=== PATIENT | male | born 1960 | race Caucasian/White ===

== ENCOUNTER 2016-06-03 14:22 | Emergency (ER) | payer OTHER ==
[~2016-06-03] VITALS: Ht 182.9 cm; Wt 114.2 kg
[~2016-06-03 14:22] MED LIST: AMBIEN10 MG PO; ASPIR 8181 M1 PO; ASPIR-LOW81 MG PO; ASPIRIN EC325 MG PO; AUGMENTIN875 MG PO; BACTRIM,SEPT1 TABLET PO; CLOPIDOGREL75 MG PO; CYCLOBENZAPRINE10 MG PO; DESYREL100 MG PO; DIAZEPAM; DIAZEPAM10 MG PO; DICYCLOMINE HCL20 MG PO; ESKALITH300 MG PO; FENTANYL1 EAC5 TD; FLEXERIL10 MG PO; FOLIC ACID1 MG PO; GLUCOPHAGE1000 MG PO; HUMALOG100 UNIT/1 SC; HUMALOG100 UNITS/ PO; HYDROCODON-ACE1 EAC5 PO; LANTUS 10100 UNITS/ SC; LANTUS100 UNIT/2 SQ; LIPITOR40 MG PO; LITHIUM CARBON150 MG PO; LITHIUM CARBON300 MG PO; LOTRIMIN AF90 GM TP; LYRICA100 MG PO; METFORMIN HCL1000 MG PO; MOTRIN600 MG PO; NITROSTAT0.4 MG SL; NORCO 5/3251 TABLET PO; OXCARBAZEPINE600 MG PO; OXYCODONE HCL10 MG PO; OXYCODONE HCL5 M1; PERCOCET 5/31 TABLET PO; PLAVIX75 MG PO; ROXICODONE5 MG PO; SEROQUEL400 MG PO; SKELAXIN800 MG PO; TEMAZEPAM30 MG PO; TORADOL10 MG PO; TRAMADOL HCL50 MG PO; TRILEPTAL300 MG PO; VALIUM5 MG PO; ZOFRAN4 MG PO; ZOLPIDEM TARTRA10 MG PO
[2016-06-03 15:17] LABS: HEMATOCRIT 44.9 % (38.0-50.0); MCH 30.5 PG (29.0-34.0); MCV 87.2 FL (86-99); RBC DIS.WIDTH-CV 14.1 % (11.8-14.6); RBC DIS.WIDTH-SD 44.3 % (39-53); RED BLOOD COUNT 5.15 M/uL (4.00-5.50); WHITE BLOOD COUNT 5.1 K/uL (4.1-10.2)
[2016-06-03 15:27] LABS: CHLORIDE 105 mEq/L (99-109); POTASSIUM 4.2 mEq/L (3.7-5.4); SODIUM 137 mEq/L (136-147)
[2016-06-03 15:29] LABS: GLUCOSE 175 mg/dL (70-99)
[2016-06-03 15:30] LABS: ANION GAP 7 MEQ/L (2-14)
[2016-06-03 15:33] LABS: GFR ESTIMATE (CALCULATED) > 59 mL/min/; UREA NITROGEN (BUN) 11 mg/dL (9-23)
[2016-06-03 15:37] LABS: TROP-I INTERPRETATION NEGATIVE; TROPONIN-I < 0.01 ng/mL (0.0-0.30)
[2016-06-03 16:00] LABS: HEMATOLOGY COMMENT 1 SMEAR COMPATIBLE; MEAN PLAT.VOLUME 10.2 uM^3 (9.0-12.4); PLATELET COUNT 37 K/uL (156-360)
[2016-06-03 16:28] LABS: AMYLASE 44 IU/L (1-118)
[2016-06-03 16:32] LABS: TOTAL BILIRUBIN 1.7 mg/dL (0.0-1.0)
[2016-06-03 16:33] LABS: ALKALINE PHOSPHATASE 90 IU/L (3-129)
[2016-06-03 16:36] LABS: DIRECT BILIRUBIN 0.6 mg/dL (0.0-0.3)
[2016-06-03 16:37] LABS: LIPASE 9 U/L (1.0-51.0)
[2016-06-03 17:38] VITALS: BP 137/81
== END 2016-06-03 17:42 | disposition left against medical advice (07) ==
LOC: EME 14:22
DX: R07.9 Chest pain, unspecified (principal); R10.9 Unspecified abdominal pain; E11.9 Type 2 diabetes mellitus without complications; I10 Essential (primary) hypertension; K72.90 Hepatic failure, unspecified without coma; I25.2 Old myocardial infarction; F17.200 Nicotine dependence, unspecified, uncomplicated; Z95.5 Presence of coronary angioplasty implant and graft
CPT/HCPCS: 71020; 74176; 80048; 80076; 82150; 83690; 84484; 85027; 93005; 99281; 99284

== ENCOUNTER 2016-10-03 21:20 | Emergency (ER) | payer OTHER ==
[~2016-10-03] VITALS: Ht 182.9 cm; Wt 111.6 kg
[~2016-10-03 21:20] MED LIST changes: +OXYCODONE HCL15 MG PO
[2016-10-03 23:35] LABS: ADD MIUA? YES; BILIRUBIN SMALL; BLOOD NEGATIVE; COLOR AMBER ((YELLOW)); GLUCOSE (STRIP) >=500; KETONES 5; LEUKOCYTES NEGATIVE; NITRITE NEGATIVE; PROTEIN (STRIP) 30; SPECIFIC GRAVITY 1.029 (1.000-1.030)
[2016-10-03 23:36] LABS: BACTERIA RARE /HPF; EPITHELIAL CELLS RARE /HPF; MUCUS TRACE /LPF; RED BLOOD CELLS 0-5 /HPF (0-5); UCUL ADDED? NO; WHITE BLOOD CELLS 0-5 /HPF (0-5)
[2016-10-04] MEDS ORDERED: SKELAXIN800 MG PO (02:02)
[2016-10-04 02:27] VITALS: BP 126/90
[2016-10-05] MEDS ORDERED: LANTUS 3 M100 UNITS1 SC (22:21)
== END 2016-10-04 02:30 | disposition home or self-care (01) ==
LOC: EME 21:20
PROVIDERS: Physician Assistant
DX: M48.06 Spinal stenosis, lumbar region (principal); G89.29 Other chronic pain; M54.5 Low back pain; R32 Unspecified urinary incontinence; Z86.73 Personal history of transient ischemic attack (TIA), and cerebral infarction without residual deficits; I25.2 Old myocardial infarction; K74.60 Unspecified cirrhosis of liver; E11.9 Type 2 diabetes mellitus without complications; Z95.5 Presence of coronary angioplasty implant and graft; Z79.84 Long term (current) use of oral hypoglycemic drugs; Z79.82 Long term (current) use of aspirin; Z79.891 Long term (current) use of opiate analgesic; Z79.4 Long term (current) use of insulin; F17.200 Nicotine dependence, unspecified, uncomplicated
CPT/HCPCS: 72148; 81003; 99281; 99284; J1885; J2060; J3010

== ENCOUNTER 2016-10-04 15:57 | Emergency (ER) | payer OTHER ==
[2016-10-05] MEDS ORDERED: LANTUS 3 M100 UNITS1 SC (22:21)
== END 2016-10-04 16:28 | disposition left against medical advice (07) ==
LOC: EME 15:57
DX: M54.5 Low back pain (principal); Z53.21 Procedure and treatment not carried out due to patient leaving prior to being seen by health care provider

== ENCOUNTER 2016-10-05 20:31 | Inpatient (IN) | payer OTHER ==
[~2016-10-05] VITALS: Ht 182.9 cm; Wt 112.2 kg
[2016-10-05] MEDS ORDERED: LANTUS 3 M100 UNITS1 SC (22:21)
[2016-10-05 22:24] LABS: HEMATOCRIT 39.4 % (38.0-50.0); MCHC 33.5 G/DL (30.0-36.0); MCV 89.5 FL (86-99); RBC DIS.WIDTH-CV 13.4 % (11.8-14.6); RBC DIS.WIDTH-SD 44.5 % (39-53); WHITE BLOOD COUNT 3.8 K/uL (4.1-10.2)
[2016-10-05 22:35] LABS: CHLORIDE 104 mEq/L (99-109); POTASSIUM 4.3 mEq/L (3.7-5.4); SODIUM 136 mEq/L (136-147)
[2016-10-05 22:37] LABS: GLUCOSE 275 mg/dL (70-99)
[2016-10-05 22:38] LABS: ANION GAP 4 MEQ/L (2-14); INTER. NORMALIZED RATIO 1.2; PTT 29.2 (25-32)
[2016-10-05 22:41] LABS: GFR ESTIMATE (CALCULATED) > 59 mL/min/
[2016-10-05 22:42] LABS: UREA NITROGEN (BUN) 9 mg/dL (9-23)
[2016-10-05 23:36] LABS: HEMATOLOGY COMMENT 1 SMEAR COMPATIBLE; IMM.PLATELET FRACTION 4.5 (1-7); MEAN PLAT.VOLUME 10.2 uM^3 (9.0-12.4); PLAT.SUFFICIENCY DECREASED; PLATELET COUNT 35 K/uL (156-360)
[2016-10-06] VITALS (7 sets, daily range): BP systolic 91–156; BP diastolic 54–78
[2016-10-06 06:31] LABS: MCH 31.3 PG (29.0-34.0); MCHC 34.4 G/DL (30.0-36.0); MCV 90.9 FL (86-99); RBC DIS.WIDTH-CV 13.5 % (11.8-14.6); RED BLOOD COUNT 3.96 M/uL (4.00-5.50); WHITE BLOOD COUNT 2.8 K/uL (4.1-10.2)
[2016-10-06 06:52] LABS: INTER. NORMALIZED RATIO 1.2; PROTHROMBIN TIME 12.5 (9.2-11.2)
[2016-10-06 06:55] LABS: ANION GAP 3 MEQ/L (2-14); CHLORIDE 105 MEQ/L (99-109); GFR ESTIMATE (CALCULATED) > 59 mL/min/; GLUCOSE 218 mg/dL (70-99); POTASSIUM 3.9 MEQ/L (3.7-5.4); SAMPLE HEMOLYSIS CHECK 0; SAMPLE ICTERIC CHECK 0; SAMPLE LIPEMIA CHECK 0; SODIUM 136 MEQ/L (136-147); UREA NITROGEN (BUN) 12 mg/dL (9-23)
[2016-10-06 07:23] LABS: METH RESISTANT S AUREUS PCR NEGATIVE (NEGATIVE); PROBE CHECK PASS; SPECIMEN PROCESSING CONTROL PASS
[2016-10-06 07:23] LABS: IMM.PLATELET FRACTION 4.2 (1-7); MEAN PLAT.VOLUME 11.6 uM^3 (9.0-12.4); PLAT.SUFFICIENCY DECREASED; PLATELET COUNT 34 K/uL (156-360)
[2016-10-06 22:07] LABS: POINT-OF-CARE METER ID UU14149397
[2016-10-07] VITALS (15 sets, daily range): BP systolic 111–138; BP diastolic 55–79
[2016-10-07 06:27] LABS: HEMATOCRIT 38.4 % (38.0-50.0); MCH 31.5 PG (29.0-34.0); MCHC 34.9 G/DL (30.0-36.0); MCV 90.1 FL (86-99); MEAN PLAT.VOLUME 10.9 uM^3 (9.0-12.4); PLATELET COUNT 42 K/uL (156-360); RBC DIS.WIDTH-CV 13.5 % (11.8-14.6); RBC DIS.WIDTH-SD 44.8 % (39-53); RED BLOOD COUNT 4.26 M/uL (4.00-5.50); WHITE BLOOD COUNT 4.6 K/uL (4.1-10.2)
[2016-10-07 06:32] LABS: POINT-OF-CARE METER ID UU14188577
[2016-10-07 07:07] LABS: PLAT.SUFFICIENCY DECREASED
[2016-10-07 11:58] LABS: POINT-OF-CARE METER ID UU14149397
[2016-10-07 15:22] LABS: POINT-OF-CARE METER ID UU13113675
[2016-10-08] VITALS (12 sets, daily range): BP systolic 95–155; BP diastolic 48–75
[2016-10-08 06:57] LABS: HEMATOCRIT 35.6 % (38.0-50.0); MCH 31.3 PG (29.0-34.0); MCV 92.2 FL (86-99); RBC DIS.WIDTH-CV 13.7 % (11.8-14.6); RBC DIS.WIDTH-SD 46.3 % (39-53); RED BLOOD COUNT 3.86 M/uL (4.00-5.50); WHITE BLOOD COUNT 4.1 K/uL (4.1-10.2)
[2016-10-08 07:48] LABS: IMM.PLATELET FRACTION 3.6 (1-7); MEAN PLAT.VOLUME 10.8 uM^3 (9.0-12.4); PLAT.SUFFICIENCY DECREASED; PLATELET COUNT 45 K/uL (156-360)
[2016-10-08 11:54] LABS: POINT-OF-CARE METER ID UU14188577
[2016-10-08 16:23] LABS: POINT-OF-CARE METER ID UU14188577
[2016-10-08 18:59] LABS: HEMATOCRIT 33.6 % (38.0-50.0); MCH 30.9 PG (29.0-34.0); MCHC 34.2 G/DL (30.0-36.0); MCV 90.3 FL (86-99); PLATELET COUNT 53 K/uL (156-360); RBC DIS.WIDTH-CV 13.6 % (11.8-14.6); RBC DIS.WIDTH-SD 45.4 % (39-53); RED BLOOD COUNT 3.72 M/uL (4.00-5.50); WHITE BLOOD COUNT 5.1 K/uL (4.1-10.2)
[2016-10-08 19:45] LABS: ANION GAP 4 MEQ/L (2-14); CHLORIDE 102 MEQ/L (99-109); GFR ESTIMATE (CALCULATED) > 59 mL/min/; GLUCOSE 134 mg/dL (70-99); POTASSIUM 4.3 MEQ/L (3.7-5.4); SAMPLE HEMOLYSIS CHECK 0; SAMPLE ICTERIC CHECK 0; SAMPLE LIPEMIA CHECK 0; SODIUM 133 MEQ/L (136-147); UREA NITROGEN (BUN) 13 mg/dL (9-23)
[2016-10-08 21:35] LABS: POINT-OF-CARE METER ID UU14149397
[2016-10-09 00:10] VITALS: BP 96/50
[2016-10-09 07:50] VITALS: BP 113/54
[2016-10-09 11:57] LABS: POINT-OF-CARE METER ID UU14149397
[2016-10-09 15:46] VITALS: BP 122/59
[2016-10-09 21:10] LABS: POINT-OF-CARE METER ID UU14149397
[2016-10-10] VITALS (12 sets, daily range): BP systolic 103–135; BP diastolic 51–75
[2016-10-10 06:48] LABS: HEMATOCRIT 30.8 % (38.0-50.0); MCH 30.6 PG (29.0-34.0); MCHC 33.8 G/DL (30.0-36.0); MCV 90.6 FL (86-99); RBC DIS.WIDTH-CV 13.6 % (11.8-14.6); RBC DIS.WIDTH-SD 45.1 % (39-53); WHITE BLOOD COUNT 4.4 K/uL (4.1-10.2)
[2016-10-10 07:33] LABS: IMM.PLATELET FRACTION 5.2 (1-7); MEAN PLAT.VOLUME 10.2 uM^3 (9.0-12.4); PLAT.SUFFICIENCY DECREASED; PLATELET COUNT 41 K/uL (156-360)
[2016-10-11 04:00] VITALS: BP 108/55
[2016-10-11 06:09] VITALS: BP 109/53
[2016-10-11 06:44] LABS: POINT-OF-CARE METER ID UU14188577
[2016-10-11 06:54] LABS: HEMATOCRIT 29.9 % (38.0-50.0); MCH 32.2 PG (29.0-34.0); MCHC 35.5 G/DL (30.0-36.0); MCV 90.9 FL (86-99); RBC DIS.WIDTH-CV 13.5 % (11.8-14.6); RED BLOOD COUNT 3.29 M/uL (4.00-5.50); WHITE BLOOD COUNT 4.2 K/uL (4.1-10.2)
[2016-10-11 07:24] LABS: IMM.PLATELET FRACTION 5.5 (1-7); MEAN PLAT.VOLUME 11.3 uM^3 (9.0-12.4); PLAT.SUFFICIENCY DECREASED; PLATELET COUNT 46 K/uL (156-360)
[2016-10-11 11:31] LABS: POINT-OF-CARE METER ID UU14188577
[2016-10-11 11:48] VITALS: BP 116/65
[2016-10-11] MEDS ORDERED: MORPHINE SULFAT15 M1 PO (11:54)
[2016-10-11] MEDS ORDERED: OXYCODONE HCL5 MG PO (11:54)
[2016-10-11] MEDS ORDERED: GABAPENTIN600 MG PO (11:54)
[2016-10-11 16:17] LABS: POINT-OF-CARE METER ID UU14188577
[2016-10-11 21:50] LABS: POINT-OF-CARE METER ID UU14188577
[2016-10-11 23:18] VITALS: BP 122/58
[2016-10-12 08:12] LABS: 90 MINUTE INCUBATION PTT ND SEC; IMMEDIATE MIX PTT ND SEC; PTT BASELINE 31.7 SEC (25-32)
[2016-10-12] MEDS ORDERED: THERAGRAN1 TABLET PO (11:07)
[2016-10-12] MEDS ORDERED: DOCUSATE SODIU100 MG PO (11:07)
[2016-10-12] MEDS ORDERED: VITAMIN D-32000 UNI2 PO (11:07)
[2016-10-12] MEDS ORDERED: BALANCE B-501 EAC1 PO (11:07)
[2016-10-12] MEDS ORDERED: BEDSIDECOMMODE MC (11:13)
[2016-10-12] MEDS ORDERED: ADULT FOLDING1 EACH MC (11:13)
[2016-10-12] MEDS ORDERED: MORPHABOND ER15 MG PO (11:29)
[2016-10-12] MEDS ORDERED: OXYCODONE HCL5 MG PO (11:29)
== END 2016-10-12 14:33 | disposition home health service (06) | DRG 516 ==
LOC: EME 20:31 → 3EAST 22:36 → EDOF 22:36 → 3EAST 23:38
PROVIDERS: Emergency Medicine; Neurological Surgery
PROC: 01NB0ZZ Release Lumbar Nerve, Open Approach (ICD-10-PCS; principal; 2016-10-05)
PROC: 30253R1 (ICD-10-PCS; 2016-10-06)
DX: M48.06 Spinal stenosis, lumbar region (principal); D61.818 Other pancytopenia; D62 Acute posthemorrhagic anemia; K76.6 Portal hypertension; F17.210 Nicotine dependence, cigarettes, uncomplicated; E11.40 Type 2 diabetes mellitus with diabetic neuropathy, unspecified; E78.5 Hyperlipidemia, unspecified; F31.9 Bipolar disorder, unspecified; G89.29 Other chronic pain; I25.10 Atherosclerotic heart disease of native coronary artery without angina pectoris; I35.0 Nonrheumatic aortic (valve) stenosis; R41.0 Disorientation, unspecified; I73.9 Peripheral vascular disease, unspecified; K59.00 Constipation, unspecified; G43.909 Migraine, unspecified, not intractable, without status migrainosus; K74.60 Unspecified cirrhosis of liver; G40.909 Epilepsy, unspecified, not intractable, without status epilepticus; K75.81 Nonalcoholic steatohepatitis (NASH); I44.0 Atrioventricular block, first degree; M47.816 Spondylosis without myelopathy or radiculopathy, lumbar region; E66.9 Obesity, unspecified; R29.6 Repeated falls; M51.26 Other intervertebral disc displacement, lumbar region; M51.36 Other intervertebral disc degeneration, lumbar region; M54.16 Radiculopathy, lumbar region; Z79.4 Long term (current) use of insulin; Z82.49 Family history of ischemic heart disease and other diseases of the circulatory system; Z86.73 Personal history of transient ischemic attack (TIA), and cerebral infarction without residual deficits; Z98.61 Coronary angioplasty status; I25.2 Old myocardial infarction; Z68.33 Body mass index [BMI] 33.0-33.9, adult; Z91.041 Radiographic dye allergy status; Z90.49 Acquired absence of other specified parts of digestive tract; Z91.013 Allergy to seafood
CPT/HCPCS: 71010; 72100; 72148; 76000; 80048; 81003; 82306; 82948; 85027; 85049; 85610; 85730; 85732; 86900; 86901; 87641; 93005; 93306; 94799; 97530 GP; 99281; 99284; 99285; J0131; J0330; J0690; J1170; J1815; J1885; J2060; J2250; J2270; J2405; J3010; J3370; P9035; P9045

== ENCOUNTER 2016-10-12 18:37 | Emergency (ER) | payer OTHER ==
[~2016-10-12] VITALS: Ht 182.9 cm; Wt 90.9 kg
[~2016-10-12 18:37] MED LIST changes: +ADULT FOLDING1 EACH MC; +BALANCE B-501 EAC1 PO; +BEDSIDECOMMODE MC; +DOCUSATE SODIU100 MG PO; +GABAPENTIN600 MG PO; +LANTUS 3 M100 UNITS1 SC; +MORPHABOND ER15 MG PO; +MORPHINE SULFAT15 M1 PO; +OXYCODONE HCL5 MG PO; +THERAGRAN1 TABLET PO; +VITAMIN D-32000 UNI2 PO
[2016-10-12 19:45] LABS: HEMATOCRIT 33.7 % (38.0-50.0); MCH 30.3 PG (29.0-34.0); MCHC 34.1 G/DL (30.0-36.0); MCV 88.9 FL (86-99); MEAN PLAT.VOLUME 10.4 uM^3 (9.0-12.4); PLATELET COUNT 59 K/uL (156-360); RBC DIS.WIDTH-CV 13.7 % (11.8-14.6); RBC DIS.WIDTH-SD 44.5 % (39-53); RED BLOOD COUNT 3.79 M/uL (4.00-5.50); WHITE BLOOD COUNT 6.2 K/uL (4.1-10.2)
[2016-10-12 19:55] LABS: INTER. NORMALIZED RATIO 1.1; PROTHROMBIN TIME 11.3 (9.2-11.2); PTT 30.1 (25-32)
[2016-10-12 19:56] LABS: CHLORIDE 100 mEq/L (99-109); POTASSIUM 4.3 mEq/L (3.7-5.4); SODIUM 137 mEq/L (136-147)
[2016-10-12 19:58] LABS: GLUCOSE 222 mg/dL (70-99)
[2016-10-12 19:59] LABS: ANION GAP 9 MEQ/L (2-14)
[2016-10-12 20:02] LABS: GFR ESTIMATE (CALCULATED) > 59 mL/min/
[2016-10-12 20:03] LABS: UREA NITROGEN (BUN) 14 mg/dL (9-23)
[2016-10-12 22:15] VITALS: BP 96/57
== END 2016-10-12 22:16 | disposition home or self-care (01) ==
LOC: EME 18:37
PROVIDERS: Nurse Practitioner Family
DX: S30.0XXA Contusion of lower back and pelvis, initial encounter (principal); W18.30XA Fall on same level, unspecified, initial encounter; Z98.890 Other specified postprocedural states; E11.9 Type 2 diabetes mellitus without complications; Z79.4 Long term (current) use of insulin; I25.2 Old myocardial infarction; Z95.5 Presence of coronary angioplasty implant and graft; Z86.73 Personal history of transient ischemic attack (TIA), and cerebral infarction without residual deficits; K74.60 Unspecified cirrhosis of liver; F32.9 Major depressive disorder, single episode, unspecified; F17.200 Nicotine dependence, unspecified, uncomplicated
CPT/HCPCS: 72131; 74176; 80048; 85027; 85610; 85730; 86900; 86901; 99281; 99284

== ENCOUNTER 2016-12-13 19:16 | Emergency (ER) | payer OTHER ==
[~2016-12-13] VITALS: Ht 182.9 cm; Wt 111.0 kg
[2016-12-13 19:54] VITALS: BP 141/93
== END 2016-12-13 19:57 | disposition home or self-care (01) ==
LOC: EME 19:16
DX: S49.92XA Unspecified injury of left shoulder and upper arm, initial encounter (principal); W19.XXXA Unspecified fall, initial encounter; E11.9 Type 2 diabetes mellitus without complications; Z79.4 Long term (current) use of insulin; M54.9 Dorsalgia, unspecified; G89.29 Other chronic pain; F17.200 Nicotine dependence, unspecified, uncomplicated
CPT/HCPCS: 99281; 99282

== ENCOUNTER 2017-06-19 00:53 | Emergency (ER) | payer OTHER ==
[~2017-06-19] VITALS: Ht 182.9 cm; Wt 112.0 kg
[2017-06-19 01:24] LABS: HEMATOCRIT 44.9 % (38.0-50.0); HEMOGLOBIN 15.7 G/DL (12.5-16.6); MCH 29.6 PG (29.0-34.0); MCV 84.7 FL (86-99); PLATELET COUNT 68 K/uL (156-360); RBC DIS.WIDTH-CV 14.7 % (11.8-14.6); RBC DIS.WIDTH-SD 45.2 % (39-53); WHITE BLOOD COUNT 9.7 K/uL (4.1-10.2)
[2017-06-19 01:38] LABS: ALBUMIN 3.7 g/dL (3.2-4.8)
[2017-06-19 01:39] LABS: CHLORIDE 98 mEq/L (99-109); POTASSIUM 4.4 mEq/L (3.7-5.4); SODIUM 132 mEq/L (136-147)
[2017-06-19 01:41] LABS: TOTAL PROTEIN 7.3 g/dL (6.4-8.3)
[2017-06-19 01:43] LABS: TOTAL BILIRUBIN 1.6 mg/dL (0.0-1.0)
[2017-06-19 01:44] LABS: ALKALINE PHOSPHATASE 158 IU/L (3-129)
[2017-06-19 01:45] LABS: CREATININE 1.1 mg/dL (0.6-1.3); GFR ESTIMATE (CALCULATED) > 59 mL/min/ (58.99-99999)
[2017-06-19 01:46] LABS: AST (GOT) 28 IU/L (2-34); TROP-I INTERPRETATION NEGATIVE; TROPONIN-I < 0.01 ng/mL (0.0-0.30); UREA NITROGEN (BUN) 13 mg/dL (9-23)
[2017-06-19 01:48] LABS: ALT (GPT) 43 IU/L (3-49); LIPASE 21 U/L (1.0-51.0)
[2017-06-19 03:03] LABS: GLUCOSE 518 mg/dL (70-99)
[2017-06-19] MEDS ORDERED: ZOFRAN ODT8 MG PO (04:22)
[2017-06-19 05:42] VITALS: BP 138/79
== END 2017-06-19 06:08 | disposition home or self-care (01) ==
LOC: EME 00:53
DX: R10.9 Unspecified abdominal pain (principal); K76.6 Portal hypertension; K74.60 Unspecified cirrhosis of liver; R91.8 Other nonspecific abnormal finding of lung field; R11.2 Nausea with vomiting, unspecified; R19.7 Diarrhea, unspecified; E11.65 Type 2 diabetes mellitus with hyperglycemia; I25.2 Old myocardial infarction; Z95.5 Presence of coronary angioplasty implant and graft; F32.9 Major depressive disorder, single episode, unspecified; F17.200 Nicotine dependence, unspecified, uncomplicated; Z86.73 Personal history of transient ischemic attack (TIA), and cerebral infarction without residual deficits; Z86.14 Personal history of Methicillin resistant Staphylococcus aureus infection; Z90.49 Acquired absence of other specified parts of digestive tract; Z79.4 Long term (current) use of insulin; Z88.5 Allergy status to narcotic agent; Z91.041 Radiographic dye allergy status
CPT/HCPCS: 71046; 74176; 80048; 80053; 83690; 84484; 85027; 93005; 99281; 99285; J0780; J2270; J7040

== ENCOUNTER 2017-08-10 09:12 | Emergency (ER) | payer OTHER ==
[~2017-08-10] VITALS: Ht 182.9 cm; Wt 112.4 kg
[~2017-08-10 09:12] MED LIST changes: +ZOFRAN ODT8 MG PO
[2017-08-10] MEDS ORDERED: PERCOCET 5/31 TABLET PO (11:09)
[2017-08-10] MEDS ORDERED: KEFLEX500 MG PO (11:09)
[2017-08-10 11:20] VITALS: BP 136/70
== END 2017-08-10 11:20 | disposition home or self-care (01) ==
LOC: EME 09:12
PROC: 3E0234Z Introduction of Serum, Toxoid and Vaccine into Muscle, Percutaneous Approach (ICD-10-PCS; principal; 2017-08-10)
DX: S91.111A Laceration without foreign body of right great toe without damage to nail, initial encounter (principal); S90.119A Contusion of unspecified great toe without damage to nail, initial encounter; W20.8XXA Other cause of strike by thrown, projected or falling object, initial encounter; Y92.512 Supermarket, store or market as the place of occurrence of the external cause; Z23 Encounter for immunization; E11.9 Type 2 diabetes mellitus without complications; F31.9 Bipolar disorder, unspecified; Z88.5 Allergy status to narcotic agent; F17.200 Nicotine dependence, unspecified, uncomplicated
CPT/HCPCS: 73630; 99281; 99283

== ENCOUNTER 2017-10-05 22:09 | Observation (INO) | payer OTHER ==
[~2017-10-05] VITALS: Ht 182.9 cm; Wt 107.9 kg
[~2017-10-05 22:09] MED LIST changes: +KEFLEX500 MG PO
[2017-10-05 22:32] LABS: HEMATOCRIT 44.6 % (38.0-50.0); HEMOGLOBIN 15.4 G/DL (12.5-16.6); MCH 29.8 PG (29.0-34.0); MCHC 34.5 G/DL (30.0-36.0); MCV 86.4 FL (86-99); PLATELET COUNT 51 K/uL (156-360); RBC DIS.WIDTH-CV 14.5 % (11.8-14.6); RBC DIS.WIDTH-SD 46.5 % (39-53); RED BLOOD COUNT 5.16 M/uL (4.00-5.50); WHITE BLOOD COUNT 4.8 K/uL (4.1-10.2)
[2017-10-05 22:46] LABS: CHLORIDE 99 mEq/L (99-109); POTASSIUM 4.2 mEq/L (3.7-5.4); SODIUM 133 mEq/L (136-147)
[2017-10-05 22:51] LABS: CREATININE 1.2 mg/dL (0.6-1.3); GFR ESTIMATE (CALCULATED) > 59 mL/min/ (58.99-99999)
[2017-10-05 22:52] LABS: GLUCOSE 574 mg/dL (70-99); UREA NITROGEN (BUN) 8 mg/dL (9-23)
[2017-10-06] MEDS ORDERED: TIZANIDINE HCL4 MG PO (01:02)
[2017-10-06] MEDS ORDERED: GABAPENTIN400 MG PO (01:02)
[2017-10-06] MEDS ORDERED: OXYCODONE HCL15 MG PO (01:02)
[2017-10-06 02:26] VITALS: BP 163/81
[2017-10-06 04:56] LABS: HEMOGLOBIN 13.9 G/DL (12.5-16.6); MCH 29.8 PG (29.0-34.0); MCHC 34.8 G/DL (30.0-36.0); MCV 85.7 FL (86-99); RBC DIS.WIDTH-CV 14.6 % (11.8-14.6); RED BLOOD COUNT 4.67 M/uL (4.00-5.50); WHITE BLOOD COUNT 4.2 K/uL (4.1-10.2)
[2017-10-06 05:29] LABS: HDL CHOLESTEROL 28 MG/DL (Desirable>=40); LDL CHOLESTEROL 101 mg/dL (Desirable<100); NON-HDL CHOLESTEROL 124 mg/dL (Desirable<160); TOTAL CHOLESTEROL 152 mg/dL (Desirable<200); TRIGLYCERIDES 115 MG/DL (Normal: <150)
[2017-10-06 05:37] LABS: LITHIUM < 0.1 MEQ/L (0.6-1.2)
[2017-10-06 06:51] LABS: IMM.PLATELET FRACTION 4.2 (1-7); PLAT.SUFFICIENCY VERY DECREASED; PLATELET COUNT 46 K/uL (156-360)
[2017-10-06 08:30] VITALS: BP 92/54
[2017-10-06 09:03] LABS: THYROTROPIN (TSH) 5.2 MIU/L (0.4-5.5)
[2017-10-06 09:08] LABS: HEMOGLOBIN A1c (GLYCOHEMOGLOB) 13.1 % (Below 5.7)
[2017-10-06] MEDS ORDERED: TRESIBA FL100 UNIT/1 SC (11:29)
[2017-10-06 11:34] VITALS: BP 114/58
[2017-10-06] MEDS ORDERED: ATORVASTATIN CA40 MG PO (15:21)
[2017-10-06] MEDS ORDERED: LISINOPRIL2.5 MG PO (15:21)
[2017-10-06] MEDS ORDERED: NICOTINE PATCH1 EACH TD (15:21)
== END 2017-10-06 17:10 | disposition home or self-care (01) ==
LOC: EME 22:09 → EDOF 10-06 00:58 → ENRESERV 10-06 01:11 → 4SOUTH 10-06 02:01
PROVIDERS: Hospitalist
DX: R20.0 Anesthesia of skin (principal); H53.8 Other visual disturbances; R53.1 Weakness; M54.2 Cervicalgia; R26.89 Other abnormalities of gait and mobility; Z91.81 History of falling; D69.6 Thrombocytopenia, unspecified; G89.29 Other chronic pain; E11.65 Type 2 diabetes mellitus with hyperglycemia; E11.40 Type 2 diabetes mellitus with diabetic neuropathy, unspecified; F31.9 Bipolar disorder, unspecified; I25.10 Atherosclerotic heart disease of native coronary artery without angina pectoris; Z95.5 Presence of coronary angioplasty implant and graft; I65.23 Occlusion and stenosis of bilateral carotid arteries; I10 Essential (primary) hypertension; E78.5 Hyperlipidemia, unspecified; R19.7 Diarrhea, unspecified; M48.00 Spinal stenosis, site unspecified; F17.210 Nicotine dependence, cigarettes, uncomplicated; Z88.6 Allergy status to analgesic agent; Z91.013 Allergy to seafood; Z91.041 Radiographic dye allergy status; Z79.4 Long term (current) use of insulin; M25.512 Pain in left shoulder; Z90.49 Acquired absence of other specified parts of digestive tract
CPT/HCPCS: 70450; 70551; 71046; 80048; 80061; 80178; 82306; 82607; 82948; 83036; 84443; 85027; 87641; 93005; 93306; 93880; 99281; 99285; G0378; G8978 GP CM; G8979 CJ; G8980 GP CM; G8987 CK; G8988 GO CJ; G8989 GO CK; J1815; J2060; J7030